=== PATIENT | male | born 1955 | race Caucasian/White ===

== ENCOUNTER → 2018-11-22 09:57 | Outpatient (CLI) | payer OTHER, SELFPAY ==
--- NOTE | 2018-11-22 | DI.US.S_ITS ---
PROCEDURE: US ABD AORTA ANEURYSM SCREEN INDICATIONS: CARDIOVASCULAR DISORDER TECHNIQUE: Real time scanning was performed of the aorta and iliac arteries, with image documentation. COMPARISON: None. FINDINGS: Aorta: Proximal aortic diameter measures 2.5 cm. Mid-aorta measures 1.9 cm. Distal aortic diameter is 1.9 cm. Iliac arteries: Right common iliac artery measures 1.2 cm. Left common iliac artery measures 1.2 cm. IMPRESSION: Negative for aneurysm. Dictated by: Reza Lerma M.D. on 11/22/2018 at 9:53 Approved by: Reza Lerma M.D. on 11/22/2018 at 9:54
== END ==
PROVIDERS: Family Provider Internal Medicine; PCP Internal Medicine; Visit Provider Internal Medicine
DX: Z13.6 Encounter for screening for cardiovascular disorders (principal)
CPT/HCPCS: 76706

== ENCOUNTER 2019-09-18 10:47 | Emergency (ER) | payer OTHER, SELFPAY ==
[2019-09-18 11:01] VITALS: PULSE 82
[2019-09-18 11:03] VITALS: BP 160/76; PULSE 88; RESP 14; TEMP 36.6; O2SAT 99
--- NOTE | 2019-09-18 11:08 | ED_ITS ---
HPI - Extremity Problem <Anya CavanaughMOISES - Last Filed: 09/18/19 21:22> General Chief complaint: Extremity Problem,Nontraumatic Stated complaint: back pain Time Seen by Provider: 09/18/19 10:57 Source: patient Mode of arrival: Wheelchair History of Present Illness HPI Narrative: 64yo male with history of diabetes presents to the emergency department for back and left hip pain starting last evening around 4:00 p.m.. He states he noticed 2 days ago on Tuesday that he leaned over to case his and felt a pop in his lower thoracic region. There was no pain at this time, he was able to sleep, and woke up the next morning walking the dogs and running errands. However around 4:00 p.m. the next aching (Tuesday) he developed a dull aching pain in his left hip and back that was worse with leaning forward and weight-bearing. His states ?he was unable to walk and had to crawl across the floor to get into the recliner. This morning he woke up with continued back pain, he was unable to walk to the car. His called 911 and the medics helped to assist him to his car. Patient is sitting on the side of the bed. He denies any loss of bowel or bladder control, no saddle paresthesias, limb we akness, numbness, tingling, dizziness, fevers, chills, history of manipulation to his back, trauma to the area, falls, headaches, vision changes, nausea, vomiting, diarrhea, chest pain, shortness of breath, or recent illness. He denies any back surgeries. Patient states over 20 years ago he had a sore thing happen to his neck which resolved spontaneously. Related Data Home Medications Medication Instructions Recorded Confirmed amlodipine 10 mg PO DAILY 09/18/19 09/18/19 losartan 50 mg PO BID 09/18/19 09/18/19 metformin 1,000 mg PO BID 09/18/19 09/18/19 pioglitazone 45 mg PO DAILY 09/18/19 09/18/19 simvastatin 40 mg PO QPM 09/18/19 09/18/19 Previous Rx's Medication Instructions Recorded cyclobenzaprine 10 mg PO TID #20 tab 09/18/19 hydrocodone-acetaminophen [Pointblank] 1 tab PO Q4-6H PRN #10 tab 09/18/19 Allergies Allergy/AdvReac Type Severity Reaction Status Date / Time erythromycin base Allergy Verified 09/18/19 11:27 Review of Systems <MOISES Guzman - Last Filed: 09/18/19 21:22> Review of Systems Narrative: REVIEW OF SYSTEMS: GENERAL: Denies fever or chills. HENT: No head trauma. EYES: No double vision or vision loss. CARDIOVASCULAR: No chest pain or syncope. RESPIRATORY: No shortness of breath or cough. GASTROINTESTINAL: No nausea, vomiting, diarrhea, or constipation. GENITOURINARY: No loss of bowel or bladder control. MUSCULOSKELETAL: Complains of thoracic and left hip pain, see HPI. INTEGUMENTARY: No rash, lesions, or pruritus. NEURO: No numbness, tingling. PSYCH: No behavior or mood changes. Patient History <MOISES Guzman - Last Filed: 09/18/19 21:22> Medical History Diabetes (Acute) Social History Smoking Status: Current every day smoker Smoking Status: Current every day smoker alcohol intake frequency: holidays/special occasions only Substance Use Type: does not use Exam <MOISES Guzman - Last Filed: 09/18/19 21:22> Initial Vital Signs Initial Vital Signs: Vital Signs Pulse Rate 82 09/18/19 11:01 PHYSICAL EXAMINATION: GENERAL: Well groomed, alert, and cooperative. Answers questions promptly and appropriately. Vital signs noted. HENT: Normocephalic, atraumatic. EYES: Symmetrical, sclera white, no periorbital swelling. CARDIOVASCULAR: S1 and S2 sounds normal. Regular rate and rhythm, no murmurs, clicks, or bruits. No pedal edema. RESPIRATORY: Normal respiratory rate, trachea midline, airway patent. No stridor, nasal flaring or accessory muscle use. Lungs are clear in all arzate. MUSCULOSKELETAL: No spinal tenderness, ecchymosis, swelling, or erythema. Tenderness noted to left iliac crest and gluteus lawrence. Increased pain when the patient bends forward and less left leg off of bed, positive straight leg test. Decreased internal and external rotation of left hip due to pain. 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 Slight decreased strength in left quad due to pain. Equal plantar and dorsiflexion. Equal tone and mass bilaterally. EXTREMITIES: CMS intact. Radial pulses 2+ and equal bilaterally. SKIN: Warm, dry, soft, appropriate color for ethnicity. No lesions, rashes, or wounds. NEURO: Alert and Oriented X 3. No sensory deficits. PSYCH: Appropriate affect and mood. <Manjit Mcmanus DO - Last Filed: 09/19/19 18:30> Initial Vital Signs Initial Vital Signs: Vital Signs Pulse Rate 82 09/18/19 11:01 Course <Anya MOISES Cavanaugh - Last Filed: 09/18/19 21:22> Course Course Narrative: After administration of medication, patient was able to ambulate with a limp, he reported improved pain. Orders Ordered: Discontinued Medications Hydrocodone Bitart/Acetaminophen (Pointblank 5/325) 1 tab PO NOW ONE Stop: 09/18/19 12:05 Hydrocodone Bitart/Acetaminophen (Pointblank 5/325) 1 tab PO NOW ONE Stop: 09/18/19 12:35 Last Admin: 09/18/19 12:49 Dose: 1 tab Documented by: ASHELY Diazepam (Valium) 5 mg PO NOW ONE Stop: 09/18/19 11:09 Last Admin: 09/18/19 11:37 Dose: 5 mg Documented by: ASHELY Ketorolac Tromethamine (Toradol) 30 mg IM NOW ONE Stop: 09/18/19 11:09 Last Admin: 09/18/19 11:38 Dose: 30 mg Documented by: ASHELY Consultations Consultation #1: Patient staffed with Dr. Mcmanus. Vital Signs Vital signs: Vital Signs - 8 hr 09/18/19 11:01 09/18/19 11:03 Temperature 97.8 F Pulse Rate [Left Posterior Tibial] 82 Pulse Rate [Radial] 88 Respiratory Rate 14 Blood Pressure [Right Arm] 160/76 H Pulse Oximetry 99 <Manjit Mcmanus DO - Last Filed: 09/19/19 18:30> Orders Ordered: Discontinued Medications Hydrocodone Bitart/Acetaminophen (Pointblank 5/325) 1 tab PO NOW ONE Stop: 09/18/19 12:05 Hydrocodone Bitart/Acetaminophen (Pointblank 5/325) 1 tab PO NOW ONE Stop: 09/18/19 12:35 Last Admin: 09/18/19 12:49 Dose: 1 tab Documented by: JOSÉ MIGUELONER Diazepam (Valium) 5 mg PO NOW ONE Stop: 09/18/19 11:09 Last Admin: 09/18/19 11:37 Dose: 5 mg Documented by: BTONER Ketorolac Tromethamine (Toradol) 30 mg IM NOW ONE Stop: 09/18/19 11:09 Last Admin: 09/18/19 11:38 Dose: 30 mg Documented by: BTONER Vital Signs Vital signs: Vital Signs - 8 hr 09/18/19 11:01 09/18/19 11:03 Temperature 97.8 F Pulse Rate [Left Posterior Tibial] 82 Pulse Rate [Radial] 88 Respiratory Rate 14 Blood Pressure [Right Arm] 160/76 H Pulse Oximetry 99 MDM - Extremity (Nontraumatic) <MOISES Guzman - Last Filed: 09/18/19 21:22> Imaging Data Extremity x-ray #1: Radiologist's Impression: [address] [address] XRay Report Signed Patient: Nicholas Black WMR#: [id number] : [id number]:[id number] Age/Sex: 64 / MDate of Service: 09/18/19 Loc: ED Accession Number: [id number] Procedure: XR hip w pel if done LT 2V Ordering Provider: Anya Cavanaugh PROCEDURE: XR HIP W PEL IF DONE LT 2V INDICATIONS: L hip pain TECHNIQUE: AP pelvis with lateral view(s) of the left hip(s). COMPARISON: None. FINDINGS: Bones: No fractures or dislocations. Pelvic ring appears intact. No suspicious bony lesions. Lower lumbar spondylosis. Degenerative changes of the pubis symphysis. Mild bilateral hip joint degeneration. Scattered degenerative subchondral sclerosis and spurring. Soft tissues: The visualized bowel gas pattern is normal. No suspicious soft tissue calcifications. Scattered vascular calcifications. IMPRESSION: Mild bilateral hip joint degeneration.If the patient's pain or other symptoms persist, consider further evaluation with MRI Dictated by: Colton Aviles M.D. on 09/18/2019 at 11:36 Approved by: Colton Aviles M.D. on 09/18/2019 at 11:38 MDM Narrative Medical decision making narrative: History and examination reveal a 64-year-old male with left-sided back and hip pain for the past 24 hours. No history of back injury, less suspicion for fracture due to lack of direct impact, or report of a specific incident causing the pain. I suspect that patient's pain is most likely due to sciatica due to positive straight leg test, radiation of pain to left leg, history of hearing a ?pop? in his back while bending over, and pain decreased after administration of medication. Additionally, this could be caused by this degeneration or disc herniation. Less likely cauda equina due to lack of saddle paresthesias, loss of bowel or bladder control. Less likely septic joint due to lack of other symptoms such as erythema, swelling, fevers, tachycardia, and etc. Patient was given pain medication, muscle relaxers, and encouraged to take NSAIDs to help with pain. We decided to forego a dose of steroid medications as patient has diabetes. Patient was encouraged to follow up with his primary care provider in 1-2 weeks for further evaluation of his back pain and discussion of possible physical therapy and or further testing such as an MRI if indicated. Strict ED return precautions given. Patient and agreed to plan of care verbalized understanding. Discharge Plan Departure Patient Disposition: Home Clinical Impression: Sciatica Qualifiers: Laterality: left Qualified Code(s): M54.32 - Sciatica, left side Discharge Date/Time: 09/18/19 12:55 Instructions: DI for Sciatica Activity Restrictions/Additional Instructions: Thank you for entrusting me with your care today. As discussed, your x-rays negative for any fractures. Your pain is most likely caused by sciatica and/or a disc problem in your back. I have given you a prescription for pain medication and a muscle relaxer, this was sent to [facility]. You have been prescribed a narcotic medication, this medication can make you drowsy. Do not drive while using this medication or perform activities that require mental alertness. These medications can also make you constipated, please use [id number] docusate sodium as needed for constipation. Please take ibuprofen with this medication for the next 3 days. Do not take Tylenol. Follow up with your primary care provider in the next few weeks for further evaluation and discussion of further testing such as an MRI and or physical therapy if indicated. Return emergency department for any new or worsening symptoms such as loss of bowel or bladder control, high fevers, chest pain, or other concerns. Prescriptions: New hydrocodone-acetaminophen [Pointblank] 5-325 mg tablet 1 tab PO Q4-6H PRN (Reason: pain) Qty: 10 RF: 0 cyclobenzaprine 10 mg tablet 10 mg PO TID Qty: 20 RF: 0 No Action losartan 50 mg tablet 50 mg PO BID RF: 0 pioglitazone 45 mg tablet 45 mg PO DAILY RF: 0 simvastatin 40 mg tablet 40 mg PO QPM RF: 0 amlodipine 10 mg tablet 10 mg PO DAILY RF: 0 metformin 1,000 mg tablet 1,000 mg PO BID RF: 0 Referrals: Souleymane Goins MD [Primary Care Provider] - <Manjit Mcmanus, DO - Last Filed: 09/19/19 18:30> Sign Out Provider Sign Out Attestation: Dr Mcmanus Co-Sign Statement: I was available for consultation during this patient's emergency department visit. This chart is si gned by myself for administrative purposes only. I did not have direct contact with this patient during this visit. They were seen independently by the APC.
[2019-09-18] MEDS: diazePAM 5 MG TABLET PO (11:37)
[2019-09-18] MEDS: KETOROLAC 60 MG/2 ML VIAL 30 MG IM (11:38)
[2019-09-18] MEDS: HYDROCODONE/ACET 5/325 TABLET 1 TAB PO (12:49)
[2019-09-18 12:55] VITALS: BP 130/66; PULSE 82; RESP 16; O2SAT 98
== END 2019-09-18 12:55 | disposition home or self-care (01) ==
PROVIDERS: Emergency Provider Nurse Practitioner; Family Provider Internal Medicine; PCP Internal Medicine
DX: M54.32 Sciatica, left side (principal)
CPT/HCPCS: 73502; 96372; 99283; 99284; J1885

== ENCOUNTER → 2021-08-12 15:32 | Outpatient (CLI) | payer OTHER, SELFPAY ==
--- NOTE | 2021-08-12 15:34 | DI.US.S_ITS ---
PROCEDURE: US ABD AORTA ANEURYSM SCREEN INDICATIONS: SCREENING FOR AAA TECHNIQUE: Real time scanning was performed of the aorta and iliac arteries, with image documentation. COMPARISON: [facility], ABD AORTA ANEURYSM SCREEN, 11/22/2018, 10:25. FINDINGS: Aorta: Proximal aortic diameter measures 2.6 cm. Mid-aorta measures 2 cm. Distal aortic diameter is 1.9 cm. Iliac arteries: Right common iliac artery measures 1.2 cm. Left common iliac artery measures 1.4 cm. IMPRESSION: No findings of abdominal aortic aneurysm. Dictated by: Reza Lerma M.D. on 08/12/2021 at 15:09 Approved by: Reza Lerma M.D. on 08/12/2021 at 15:10
== END ==
PROVIDERS: Family Provider Internal Medicine; PCP Internal Medicine; Referring Provider Internal Medicine; Visit Provider Internal Medicine
DX: Z13.6 Encounter for screening for cardiovascular disorders (principal)
CPT/HCPCS: 76706